=== PATIENT | female | born 1980 | race Caucasian/White ===

== ENCOUNTER 2018-01-01 13:24 | Emergency (ER) | payer MEDICAID ==
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
--- NOTE | 2018-01-01 17:18 | CT ---
DATE OF SERVICE: 01/01/18 CLINICAL DATA: [facility] UNENHANCED ABDOMEN CT: Multislice acquisition through the abdomen without IV or oral contrast was performed. No priors. The lung bases are clear. The unenhanced liver appears normal. The gallbladder is contracted but otherwise is unremarkable. The spleen appears normal. The pancreas appears normal. The right and left adrenals appear normal. No nephrocalcinosis or nephrolithiasis. There are extrarenal pelves bilaterally. The proximal right ureter is mildly prominent. The kidneys are otherwise unremarkable. There is mild diffuse gastric wall thickening. This is probably related to nondistension. Gastritis should be considered. No free air. No free fluid. No dilated loops of bowel. No adenopathy. No aortic aneurysm. There is a partial compression fracture of L1 with approximately 50% loss of height anteriorly. This appears to be chronic. There is a 16 mm sclerotic lesion within the L2 vertebra. This is probably a bone island. Sclerotic metastatic disease should at least be considered. No other significant findings. [id number] [facility]
== END 2018-01-01 14:38 | disposition home or self-care (01) ==
LOC: LB.ED 13:24 → EDBD 13:24 → LB.ED 14:38
DX: R07.81 Pleurodynia (principal); R10.12 Left upper quadrant pain; R10.32 Left lower quadrant pain; V43.52XA Car driver injured in collision with other type car in traffic accident, initial encounter
CPT/HCPCS: 74150; 99284; A0425; A0429